=== PATIENT | male | born 1995 | race Caucasian/White ===

== ENCOUNTER 2018-12-24 18:47 | Emergency (ER) | payer OTHER ==
[2018-12-24 18:53] VITALS: BP 139/85
--- NOTE | 2018-12-24 18:57 | ER Report ---
History and Physical Time Seen By MD: 18:54 Hx. of Stated Complaint: CUT LEFT THUMB WITH KITCHEN KNIFE. UTD ON TDAP HPI/ROS CHIEF COMPLAINT: Finger laceration HISTORY OF PRESENT ILLNESS: 23-year-old male patient presents to emergency room with complaint finger laceration. 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 Patient states that he did apply pressure. He came in for evaluations he was having significant amounts of bleeding. Patient denies any numbness tingling. States he is not taking any medication for this. He states he is unsure of his last tetanus shot. Allergies: Coded Allergies: No Known Drug Allergies (Unverified , 12/24/18) Home Meds Active Scripts Cephalexin 500 Mg Tab (KEFLEX 500 MG TAB) 500 Mg Tablet, 500 MG PO Q6H, #20 TAB Prov:JESSE MORRIS [employer]GER 12/24/18 Past Medical/Surgical History Patient has no pertinent medical or surgical history. Reviewed Nurses Notes: Yes Hx Smoking: No Smoking Status: Never Smoker Constitutional Vital Sign - Last 24 Hours 12/24/18 18:53 Temp 98.7 Pulse 102 Resp 16 B/P (MAP) 139/85 Pulse Ox 94 O2 Delivery Room Air Physical Exam General appearance: Alert no distress. Respiratory: Chest is non tender, lungs are clear to auscultation. Cardiac: Regular rate and rhythm. Skin: Patient has circular laceration of the distal tip of the left thumb. Measures 2 cm in length. DIFFERENTIAL DIAGNOSIS: After history and physical exam differential diagnosis was considered for laceration Medical Decision Making ED Course/Re-evaluation ED Course Patient is admitted and examined, history and physical were obtained. Differential diagnoses were considered. On examination lungs are clear, heart is regular. Patient does have a circular laceration of the left thumb. The thumb was anesthetized, cleaned and repaired described below. Patient already procedure well. We'll go ahead and discharge him home at this time. He is to monitor for signs of infection, limit activity by pain. Patient was given a limited supply of antibiotics to prevent infection. He is return to the emergency room with any concerns. Patient verbalized understanding and agreement with plan. Procedure: Laceration repair. Verbal consent was obtained from the patient. The 2 cm laceration on the thumb was anesthetized in the usual fashion. The wound was scrubbed, draped and explored to its base with a gloved finger. There were no deep structures involve d. No tendon injury was identified. The wound was repaired with 8 simple interrupted sutures using 5-0 Prolene material. The wound repair was simple. The procedure was performed by myself. Decision to Disposition Date: Dec 24, 2018 Decision to Disposition Time: 20:03 Depart Departure Latest Vital Signs Vital Signs Date Time Temp Pulse Resp B/P (MAP) Pulse Ox O2 Delivery O2 Flow Rate FiO2 12/24/18 18:53 98.7 102 16 139/85 94 Room Air Impression: Primary Impression: Finger laceration Condition: Improved Disposition: HOME OR SELF-CARE Referrals: BULMARO GASPAR MD (PCP) New Scripts Cephalexin 500 Mg Tab (KEFLEX 500 MG TAB) 500 Mg Tablet 500 MG PO Q6H, #20 TAB Prov: JESSE MORRIS 12/24/18 Patient Instructions: Finger Laceration (ED) Additional Instructions: Keep wound dry for 48 hours. Follow up with your primary care provider in the next 7-10 days to have sutures removed. Monitor for signs of infection; redness, swelling, heat, discharge, increasing pain or red streaking. Take Tylenol or Ibuprofen as needed for pain. Return to the ER with any concerns. You may change dressing as needed. Problem Qualifiers Primary Impression: Finger laceration Encounter type: initial encounter Finger: thumb Damage to nail status: without damage Foreign body presence: without foreign body Laterality: left Qualified Codes: S61.012A - Laceration without foreign body of left thumb without damage to nail, initial encounter JESSE MORRIS Dec 24, 2018 18:57
[2018-12-24] MEDS ORDERED: CEPH500T7 PO (20:07)
[2018-12-24] MEDS ORDERED: DIPHTH/TETANUS/ACEL. PERTUSSIS IM ONLY ONE (20:15)
== END 2018-12-24 20:07 | disposition home or self-care (01) ==
LOC: ER 19:14
DX: S61.012A Laceration without foreign body of left thumb without damage to nail, initial encounter (principal); W26.0XXA Contact with knife, initial encounter; Y93.G3 Activity, cooking and baking
CPT/HCPCS: 90471; 90715; 99282

== ENCOUNTER 2019-01-03 17:37 | Emergency (ER) | payer OTHER ==
[~2019-01-03 17:37] MED LIST: CEPH500T7 PO
--- NOTE | 2019-01-03 17:44 | ER Report ---
History and Physical Time Seen By MD: 17:40 HPI/ROS CHIEF COMPLAINT: Laceration, suture removal. HISTORY OF PRESENT ILLNESS: The patient returns to the ED for suture removal. There have been no problems and no symptoms of infection. The laceration was on the left thumb. Sutures have been in place for 10 days. Allergies: Coded Allergies: No Known Drug Allergies (Unverified , 12/24/18) Home Meds Active Scripts Cephalexin 500 Mg Tab (KEFLEX 500 MG TAB) 500 Mg Tablet, 500 MG PO Q6H, #20 TAB Prov:JESSE MORRIS ADMIN PROG COORD 12/24/18 Past Medical/Surgical History Patient has no pertinent medical or surgical history. Reviewed Nurses Notes: Yes Hx Smoking: No Smoking Status: Never Smoker Constitutional Vital Sign - Last 24 Hours 01/03/19 17:40 Temp 98.1 Pulse 87 Resp 20 B/P (MAP) 133/90 Pulse Ox 92 O2 Delivery Room Air Physical Exam General appearance: alert no distress Skin: The laceration of the left thumb is well healing and appears to have no evidence of infection. MEDICAL DECISION MAKING: I removed the sutures. Following removal there was no reported dehiscence of the wound. Medical Decision Making ED Course/Re-evaluation ED Course Patient was admitted and examined, history and physical were obtained. 2 differential diagnoses were considered. On examination wound appears to be well approximated, there is no signs of infection, no erythema or redness. Sutures removed without any difficulty. There is no dehiscence. The wound was covered with a 2 x 2 with bacitracin and then wrapped with a Coban. Patient tolerated procedure well. He is to follow-up with any signs of infection. He states Tylenol ibuprofen as needed for pain. Patient verbalized understanding and agreement with plan. Decision to Disposition Date: Jan 03, 2019 Decision to Disposition Time: 17:50 Depart Departure Latest Vital Signs Vital Signs Date Time Temp Pulse Resp B/P (MAP) Pulse Ox O2 Delivery O2 Flow Rate FiO2 01/03/19 17:40 98.1 87 20 133/90 92 Room Air Impression: Primary Impression: Visit for suture removal Condition: Improved Disposition: HOME OR SELF-CARE Patient Instructions: Stitches Removal (ED) Additional Instructions: Monitor for signs of infection; redness, swelling, heat, discharge, increasing pain or red streaking. Take Tylenol or Ibuprofen as needed for pain. You may change dressing as needed. JESSE MORRIS Jan 03, 2019 17:44
[2019-01-03 18:05] VITALS: BP 118/64
== END 2019-01-03 18:05 | disposition home or self-care (01) ==
LOC: ER 17:43
DX: S61.012D Laceration without foreign body of left thumb without damage to nail, subsequent encounter (principal)
CPT/HCPCS: 99281